=== PATIENT | male | born 1990 | race Caucasian/White ===

== ENCOUNTER 2024-03-29 20:59 | Emergency (ER) | payer OTHER, SELFPAY ==
[2024-03-29 21:00] VITALS: BP 180/104; PULSE 89; RESP 16; TEMP 36.8; O2SAT 100; BMI 26.5
--- NOTE | 2024-03-29 21:20 | DI.RAD.S_ITS ---
PROCEDURE: XR HAND LT MIN 3V INDICATIONS: Animal bite TECHNIQUE: 3 views of the hand(s) acquired. COMPARISON: None. FINDINGS: Bones: No fractures or dislocations. Carpal bones are normally aligned. No suspicious bony lesions. Soft tissues: No suspicious soft tissue calcifications. IMPRESSION: No acute bony abnormality. Dictated by: Esteban El M.D. on 03/29/2024 at 22:16 Approved by: Esteban El M.D. on 03/29/2024 at 22:18
--- NOTE | 2024-03-29 21:24 | ED_ITS ---
HPI - Animal Bite General Chief Complaint: Animal Bite Stated Complaint: dog bite to rt hand Time Seen by Provider: 03/29/24 21:18 Source: patient Mode of arrival: Ambulatory History of Present Illness HPI narrative: Patient is a 34-year-old male who is here for evaluation of was initially describes as a dog bite to his left hand but turns out it is a seal bite. He states that he found the seal your locally and picked it up. He stated that the seal eventually turned and bit him in his left hand. This occurred almost 24 hours ago. No other injuries from the bed. He was up-to-date on his tetanus shot. Related Data Previous Rx's Medication Instructions Recorded amoxicillin 875 mg-potassium 1 tab PO BID 7 days #14 tabs 03/29/24 clavulanate 125 mg tablet Allergies Allergy/AdvReac Type Severity Reaction Status Date / Time No Known Drug Allergies Allergy Verified 03/29/24 21:15 Review of Systems Review of Systems Narrative: See HPI Patient History Social History Smoking Status: Never smoker Smoking Status: Never smoker alcohol intake frequency: a few times a week Substance Use Type: does not use Exam Initial Vital Signs Initial Vital Signs: Vital Signs Temperature 98.3 F 03/29/24 21:00 Pulse Rate 89 03/29/24 21:00 Respiratory Rate 16 03/29/24 21:00 Blood Pressure 180/104 H 03/29/24 21:00 Pulse Oximetry 100 03/29/24 21:00 Oxygen Delivery Method Room Air 03/29/24 21:00 Skin Other: Multiple what appeared to be superficial puncture wounds to his left thumb at the base of his left thumb. No active bleeding. Very minimal surrounding erythema. Neuro Sensory Exam: no sensory deficits noted Course Orders Ordered: ED Orders 03/29/24 21:20 XR hand LT min 3V Stat Discontinued Medications Amoxicillin/Clavulanate Potassium (Amoxicillin/Clav 875/125 Mg) 1 tab PO NOW ONE Stop: 03/29/24 21:25 Last Admin: 03/29/24 21:45 Dose: 1 tab Documented By: SAEID Vital Signs Vital signs: Vital Signs - 8 hr 03/29/24 21:00 03/29/24 22:30 Temperature 98.3 F Pulse Rate 89 Respiratory Rate 16 Blood Pressure 180/104 H 118/64 Pulse Oximetry 100 Oxygen Delivery Method Room Air MDM - Animal Bite Imaging Data Extremity x-ray #1: Radiologist's Impression: PROCEDURE: XR HAND LT MIN 3V INDICATIONS: Animal bite TECHNIQUE: 3 views of the hand(s) acquired. COMPARISON: None. FINDINGS: Bones: No fractures or dislocations. Carpal bones are normally aligned. No suspicious bony lesions. Soft tissues: No suspicious soft tissue calcifications. IMPRESSION: No acute bony abnormality. [facility] Narrative Medical decision making narrative: X-ray shows no fractures nor retained foreign body. There was no overt signs of infection today however given the nature of the wound will start on antibiotics. First dose was given here in the ER and a prescription was sent to pharmacy of his choice. He was given return precautions and follow-up instructions. He expressed understanding and agreement. Discharge Plan Departure Patient Disposition: Home Clinical Impression: Bite by animal Instructions: DI for Animal Bites Activity Restrictions/Additional Instructions: Wash your hands often with soap and water. Take the antibiotics as directed. Return to the emergency department for new or worsening symptoms. Prescriptions: New amoxicillin-pot clavulanate 875-125 mg tablet 1 tab PO BID 7 Days Qty: 14 0RF Referrals: Miscellaneous,Doctor, [Primary Care Provider] - Stand Alone Forms: Patient Portal/API
[2024-03-29] MEDS: AMOXICILLIN/CLAV 875/125 MG 1 TAB PO (21:45)
[2024-03-29 22:30] VITALS: BP 118/64
== END 2024-03-29 22:25 | disposition home or self-care (01) ==
PROVIDERS: Emergency Provider Emergency Medicine
DX: S61.452A Open bite of left hand, initial encounter (principal); W56 Contact with nonvenomous marine animal
CPT/HCPCS: 73130; 99283